=== PATIENT | female | born 1985 | race Caucasian/White ===

== ENCOUNTER 2017-10-07 07:01 | Emergency (ER) | payer SELFPAY ==
[~2017-10-07] VITALS: Ht 160 cm; Wt 49.1 kg
[2017-10-07 07:16] VITALS: Ht 160 cm; Wt 49.1 kg
[2017-10-07] MEDS ORDERED: PROZAC40 MG PO ×2 (07:18→07:40)
[2017-10-07] MEDS ORDERED: STRATTERA25 MG PO ×2 (07:18→07:40)
[2017-10-07] MEDS ORDERED: THORAZINE25 MG PO (07:19)
[2017-10-07] MEDS ORDERED: SEROQUEL100 MG PO ×2 (07:19→07:40)
[2017-10-07] MEDS ORDERED: VALIUM5 MG PO (07:41)
[2017-10-07 07:59] VITALS: BP 122/80
== END 2017-10-07 07:59 | disposition home or self-care (01) ==
LOC: D.ER 07:01
DX: F31.9 Bipolar disorder, unspecified (principal); G40.909 Epilepsy, unspecified, not intractable, without status epilepticus; F90.9 Attention-deficit hyperactivity disorder, unspecified type

== ENCOUNTER 2017-11-24 00:06 | Emergency (ER) | payer SELFPAY ==
[~2017-11-24] VITALS: Ht 160 cm; Wt 46.8 kg
[~2017-11-24 00:06] MED LIST: PROZAC40 MG PO; SEROQUEL100 MG PO; STRATTERA25 MG PO; THORAZINE25 MG PO; VALIUM5 MG PO
[2017-11-24 00:11] VITALS: Ht 160 cm; Wt 46.8 kg
[2017-11-24] MEDS ORDERED: VISTARIL25 MG PO (00:43)
[2017-11-24 01:03] VITALS: BP 132/77
== END 2017-11-24 01:04 | disposition home or self-care (01) ==
LOC: D.ER 00:06
DX: F41.9 Anxiety disorder, unspecified (principal); G40.909 Epilepsy, unspecified, not intractable, without status epilepticus; F90.9 Attention-deficit hyperactivity disorder, unspecified type

== ENCOUNTER 2018-01-18 19:41 | Emergency (ER) | payer SELFPAY ==
[~2018-01-18] VITALS: Ht 160 cm; Wt 52.3 kg
[~2018-01-18 19:41] MED LIST changes: +VISTARIL25 MG PO
[2018-01-18 19:46] VITALS: BP 130/89; Ht 160 cm; Wt 52.3 kg
== END 2018-01-18 20:40 | disposition left against medical advice (07) ==
LOC: D.ER 19:41
DX: F41.9 Anxiety disorder, unspecified (principal)